=== PATIENT | female | born 1980 | race Caucasian/White ===

== ENCOUNTER 2019-06-08 15:41 | Emergency (ER) | payer BC ==
--- NOTE | 2019-06-08 15:58 | Emergency Department Record ---
History of Present Illness - General Chief Complaint: Numbness Stated Complaint: NUMBNESS RT SIDE Time Seen by Provider: 06/08/19 15:53 Source: Patient, RN notes reviewed - History of Present Illness Initial Comments: 1.5 hours prior to arrival(2:30pm) numbness in the right arm and right face and some visual distortion. No headache and no speech problems and no gait problems, No weakness in arms or legs. NIH of 2 numbness and partial visual loss Onset/Timin -: Hour(s) Location: Right arm (numbness), Right face Place: Other Severity: Mild Quality: Numb Improves With: None Worsens With: None On Anticoagulants: No - [place] Coma Scale Eye Response: (4) Open spontaneously Motor Response: (6) Obeys commands Verbal Response: (5) Oriented [place] Total: 15 - Symptoms of Stroke Symptoms of stroke: Numbness Baseline State End Date: 06/08/19 (NIH 2) - Related Data Home Medications: Home Medications Medication Instructions Recorded Confirmed Last Taken Fluticasone Furoate [Arnuity 1 puff INH DAILY 06/08/19 06/08/19 06/08/19 Ellipta] Montelukast Sodium [Singulair] 1 tab PO QHS 06/08/19 06/08/19 06/07/19 Allergies/Adverse Reactions: Allergies Allergy/AdvReac Type Severity Reaction Status Date / Time amoxicillin AdvReac DIARRHEA Verified 06/08/19 15:50 erythromycin base AdvReac RAPID Verified 06/08/19 15:50 HEART RATE hydrocodone [From Vicodin] AdvReac NAUSEA Verified 06/08/19 15:50 Review of Systems Reviewed: No additional complaints except as noted below Constitutional: Reports: As per HPI. Denies: Chills, Fever, Malaise, Night sweats, Weakness, Weight change Eyes: Reports: As per HPI, Vision change. Denies: Eye discharge, Eye pain, Photophobia ENT: Reports: As per HPI. Denies: Congestion, Dental pain, Ear pain, Epistaxis, Hearing loss, Throat pain Respiratory: Reports: As per HPI. Denies: Cough, Dyspnea, Hemoptysis, Stridor, Wheezes Cardiovascular: Reports: As per HPI. Denies: Arrhythmia, Chest pain, Dyspnea on exertion, Edema, Murmurs, Orthopnea, Palpitations, Paroxysmal nocturnal dyspnea, Rheumatic Fever, Syncope Endocrine: Reports: As per HPI. Denies: Fatigue, Heat or cold intolerance, Polydipsia, Polyuria Gastrointestinal: Reports: As per HPI. Denies: Abdominal pain, Constipation, Diarrhea, Hematemesis, Hematochezia, Melena, Nausea, Vomiting Genitourinary: Reports: As per HPI. Denies: Abnormal menses, Discharge, Dyspareunia, Dysuria, Frequency, Hematuria, Incontinence, Retention, Urgency Musculoskeletal: Reports: As per HPI. Denies: Arthralgia, Back pain, Gout, Joint swelling, Myalgia, Neck pain Skin: Reports: As per HPI. Denies: Bruising, Change in color, Change in hair/nails, Lesions, Pruritus, Rash Neurological: Reports: As per HPI, Numbness. Denies: Abnormal gait, Confusion, Headache, Paresthesias, Seizure, Tingling, Tremors, Vertigo, Weakness Psychiatric: Reports: As per HPI. Denies: Anxiety, Auditory hallucinations, Depression, Homicidal thoughts, Suicidal thoughts, Visual hallucinations Hematological/Lymphatic: Reports: As per HPI. Denies: Anemia, Blood Clots, Easy bleeding, Easy bruising, Swollen glands Physical Exam - General General Appearance: Alert, Oriented x3, Cooperative, No acute distress - Head Head exam: Normal inspection - Eye Eye exam: Normal appearance, PERRL Pupils: Normal accommodation - ENT ENT exam: Normal exam, Mucous membranes moist, Normal external ear exam, Normal orophraynx, TM's normal bilaterally Ear exam: Normal external inspection. negative: External canal tenderness Nasal Exam: Normal inspection. negative: Discharge, Sinus tenderness Mouth exam: Normal external inspection, Tongue normal Teeth exam: Normal inspection. negative: Dental caries Throat exam: Normal inspection. negative: Tonsillar erythema, Tonsillar exudate - Neck Neck exam: Normal inspection, Full ROM. negative: Tenderness - Respiratory Respiratory exam: Normal lung sounds bilaterally. negative: Respiratory distress - Cardiovascular Cardiovascular Exam: Regular rate, Normal rhythm, Normal heart sounds - GI/Abdominal GI/Abdominal exam: Soft, Normal bowel sounds. negative: Tenderness - Rectal Rectal exam: Deferred - exam: Deferred - Extremities Extremities exam: Normal inspection, Full ROM, Normal capillary refill. negative: Tenderness - Back Back exam: Reports: Normal inspection, Full ROM. Denies: Muscle spasm, Rash noted, Tenderness - Neurological Neurological exam: Alert, Normal gait, Oriented X3, Reflexes normal, Other (numbness right arm and right face distortion of vision.) - Psychiatric Psychiatric exam: Normal affect, Normal mood - Skin Skin exam: Dry, Intact, Normal color, Warm Course - Reevaluation(s) Reevaluation #1: vision is improving 20/30 and numbness is improved some, no weaknesss 06/08/19 16:35 Reevaluation #2: discussed case with Dr. Cason and offerred the patient TPA and informed her of risks and benefits and patient refused TPA because getting better and didn't want to take the risk. Informed Dr Liu of the decision 06/08/19 16:50 Reevaluation #3: Tramnsfer to [facility] ED by EMS 06/08/19 16:52 Reevaluation #4: No field defect now 06/08/19 16:53 Medical Decision Making - Data Complexity MDM Data: Labs Ordered and/or Reviewed, EKG Ordered and/or Reviewed (NSR) - Lab Data Result diagrams: 06/08/19 16:26 06/08/19 16:26 Disposition Clinical Impression: CVA (cerebral vascular accident) Qualifiers: CVA mechanism: unspecified Qualified Code(s): I63.9 - Cerebral infarction, unspecified Disposition: Acute Care Hospital Transfer Condition: (2) Stable Forms: Patient Portal Access Time of Disposition: 16:52 Quality - Quality Measures Quality Measures: N/A - Blood Pressure Screening Does Patient Have Any of the Following: No Blood Pressure Classification: Pre-Hypertensive BP Reading Systolic Measurement: 137 Diastolic Measurement: 84 Screening for High Blood Pressure: < Pre-Hypertensive BP, F/U Documented > [G8950] Pre-Hypertensive Follow-up Interventions: Referral to alternative/primary care provider.
[2019-06-08 16:31] LABS: ABSOLUTE NEUTROPHIL COUNT 8.75; BASO % 0.3 % (0-6); EOS % 1.9 % (0-6); GRAN % 76.8 % (47-80); HEMATOCRIT 38.8 % (35.0-47.0); LYMPH % 15.6 % (16-45); MEAN CELL VOLUME 90.4 fl (81-97); MEAN CORPUSCULAR HEMOGLOBIN 30.3 pg (27-33); MEAN CORPUSCULAR HGB CONC 33.5 g/dl (32-36); MEAN PLATELET VOLUME 9.7 fl (7.4-10.4); MONO % 5.4 % (0-9); PLATELET COUNT 302 K/uL (130-400); RED BLOOD COUNT 4.29 M/uL (3.80-5.40); RED CELL DISTRIBUTION WIDTH 12.4 % (11.5-14.5); WHITE BLOOD COUNT W/O DIFF 11.4 K/uL (4.2-12.2)
[2019-06-08 16:41] LABS: BLOOD UREA NITROGEN 14 mg/dL (6-20); CREATININE 0.7 mg/dL (0.5-0.9); EST GLOMERULAR FILTRATION RATE > 60 mL/min
[2019-06-08 16:44] LABS: GLUCOSE,RANDOM 98 mg/dL (74-109)
[2019-06-08 16:45] LABS: PARTIAL THROMBOPLASTIN TIME 28.5 SECONDS (24.5-39.1); PROTHROMBIN TIME (PATIENT) 10.7 SECONDS (9.5-12.1)
--- NOTE | 2019-06-09 19:38 | CT SCAN REPORT ---
EXAM: CT SCAN HEAD WO CONTRAST HISTORY: RIGHT ARM NUMBNESS. BLURRY VISION IN THE RIGHT EYE. COMPARISON: None. TECHNIQUE: Without administration of intravenous contrast, contiguous CT sections are obtained through the head with coronal and sagittal reformats. FINDINGS: Brain parenchyma is of normal appearance without mass effect or midline shift. Lozano-white junction appears intact. The white matter and CSF spaces appear grossly unremarkable. No evidence for intra or extraaxial bleeding. Visualized portions of the paranasal sinuses, mastoids, and orbits reveal mild mucosal thickening present at the maxillary sinuses and at the frontal ethmoidal recess. No skull fracture visualized. IMPRESSION: NO ACUTE INTRACRANIAL PROCESS EVIDENT BY NONCONTRAST TECHNIQUE. JOB NUMBER: [id number] [facility]
== END 2019-06-08 17:11 | disposition short-term general hospital (02) ==
LOC: ER 15:41
DX: I63.9 Cerebral infarction, unspecified (principal)
CPT/HCPCS: 70450; 80048; 85025; 85384; 85610; 85730; 93005; 93010; 99285